=== PATIENT | male | born 1995 | race Caucasian/White ===

== ENCOUNTER 2019-04-05 15:07 | Inpatient (IN) | payer OTHER ==
[2019-04-05 17:06] VITALS: BMI 20.5
--- NOTE | 2019-04-05 19:27 | HP ---
CIWA Score Nausea/Vomitin-Mild Nausea/No Vomiting Muscle Tremors: 2 Anxiety: 1-Mildly Anxious Agitation: 1-Slight > Activity Paroxysmal Sweats: 1-Minimal Palms Moist Orientation: 0-Oriented Tacttile Disturbances: 0-None Auditory Disturbances: 0-None Visual Disturbances: 0-None Headache: 0-None Present CIWA-Ar Total Score: 6 - Admission Criteria OASAS Guidelines: Admission for Medically Managed Detox: Requires at least one of the followin. CIWA greater than 12 2. Seizures within the past 24 hours 3. Delirium tremens within the past 24 hours 4. Hallucinations within the past 24 hours 5. Acute intervention needed for co occurring medical disorder 6. Acute intervention needed for co occurring psychiatric disorder 7. Severe withdrawal that cannot be handled at a lower level of care (continued vomiting, continued diarrhea, abnormal vital signs) requiring intravenous medication and/or fluids 8. Admission ROS [facility] - [facility] Chief Complaint: here for xanax withdrawal, on MAT methadone Allergies/Adverse Reactions: Allergies Allergy/AdvReac Type Severity Reaction Status Date / Time No Known Allergies Allergy Verified 04/05/19 16:58 History of Present Illness: 24 yo with no medical problems, in [facility] in the [place], dosed 120mg today. Mother . Says he can't go back to his apartment, order of protection by roommate. 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 Pt states he got librium 50mg a day to detox and felt this is better for him than valium. Valium makes him "feel funny" xanax- 8-10mg/day, h/o seizures. Says he started heroin- 2bags/day on MAT methadone 120mg- going up on dose cocaine- occ MJ: occ DUR- no recent controlled substances - Ebola screening Have you traveled outside of the country in the last 21 days: No Have you had contact with anyone from an Ebola affected area: No - Review of Systems Constitutional: No Symptoms Reported EENT: reports: No Symptoms Reported Respiratory: reports: No Symptoms reported Cardiac: reports: No Symptoms Reported GI: reports: No Symptoms Reported : reports: No Symptoms Reported, Testicular Swelling Integumentary: reports: No Symptoms Reported Neuro: reports: No Symptoms reported Endocrine: reports: No Symptoms Reported Hematology: reports: No Symptoms Reported Psychiatric: reports: No Sypmtoms Reported Other Systems: Reviewed and Negative Patient History - Patient Medical History Hx Human Immunodeficiency Virus (HIV): No Hx Hepatitis C: No - Patient Surgical History Past Surgical History: Yes Other Surgical History: tonsillectomy - PPD History Previous Implant?: Yes Documented Results: Negative w/o proof - Smoking Cessation Smoking history: Current every day smoker Have you smoked in the past 12 months: Yes Aproximately how many cigarettes per day: 5 Hx Chewing Tobacco Use: No Initiated information on smoking cessation: Yes 'Breaking Loose' booklet given: 04/05/19 - Substance & Tx. History Hx Alcohol Use: No Hx Substance Use: No Substance Use Type: Cocaine, Heroin, Marijuana, Opiates, Prescribed Hx Substance Use Treatment: Yes - Substances abused Alprazolam (Xanax) Substance route: Oral Frequency: Daily Amount used: 10 mg Age of first use: 12 Date of last use: 04/04/19 Heroin Substance route: Injection Frequency: Daily Amount used: 4 to 5 bags Age of first use: 19 Date of last use: 04/04/19 Cocaine Substance route: Injection Frequency: 1-2 times per week Family Disease History - Family Disease History Family Disease History: Other: Mother ( of natural causes) Admission Physical Exam BHS - Vital Signs Vital Signs: Vital Signs - 24 hr 04/05/19 16:59 Temperature 97.2 F L Pulse Rate 61 Respiratory 16 Rate Blood Pressure 104/61 - Physical General Appearance: Yes: Within Normal Limits, Anxious HEENTM: Yes: Within Normal Limits, EOMI Respiratory: Yes: Within Normal Limits, Chest Non-Tender, Lungs Clear Neck: Yes: Within Normal Limits Cardiology: Yes: Within Normal Limits, Regular Rhythm Abdominal: Yes: Within Normal Limits, Normal Bowel Sounds, Non Tender Genitourinary: Yes: Within Normal Limits Back: Yes: Within Normal Limits Musculoskeletal: Yes: Within Normal Limits Extremities: Yes: Within Normal Limits Neurological: Yes: Within Normal Limits, 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 NML intact Integumentary: Yes: Within Normal Limits, Track Pierre, Other (tatoos and scar on face) Lymphatic: Yes: Within Normal Limits - Diagnostic (1) Moderate benzodiazepine use disorder Current Visit: Yes Status: Acute (2) Opioid dependence on agonist therapy Current Visit: Yes Status: Acute (3) Cocaine use disorder Current Visit: Yes Status: Acute (4) Tobacco abuse disorder Current Visit: Yes Status: Acute Breathalyzer - Breathalyzer Breathalyzer: 0 Urine Drug Screen - Test Device Lot number: [id number] Expiration date: 12/28/20 - Control Is test valid?: Yes - Results Drug screen NEGATIVE: No Urine drug screen results: THC-Marijuana, RHEA-Cocaine, FEN-Fentanyl, MOP-Opiates , MTD-Methadone, BZO-Benzodiazepines Inpatient Rehab Admission - Rehab Decision to Admit Inpatient rehab admission?: No
[2019-04-05] MEDS ORDERED: MAGNESIUM HYDROX 2400MG/30ML ORAL SUSPENSION 30 ML CUP PO PRN (19:37)
[2019-04-05] MEDS ORDERED: hydrOXYzine HCL 25 MG TABLET (FP) PO PRN ×2 (19:37→19:47)
[2019-04-05] MEDS ORDERED: ACETAMINOPHEN 325 MG TABLET (FP) PO PRN ×2 (19:37)
[2019-04-05] MEDS ORDERED: NICOTINE POLACRILEX 2 MG GUM BUC PRN (19:37)
[2019-04-05] MEDS ORDERED: MAG HYDROX/AL HYDROX/SIMETH 30 ML UNIT-DOSE CUP PO PRN (19:37)
[2019-04-05] MEDS ORDERED: BISMUTH SUBSALICYLATE 524 MG/30 ML UD PO PRN (19:37)
[2019-04-05] MEDS ORDERED: METHOCARBAMOL 500 MG TABLET PO PRN (19:37)
[2019-04-05] MEDS ORDERED: MENTHOL/PHENOL 1 EACH UD MM PRN (19:37)
[2019-04-05] MEDS ORDERED: MAGNESIUM CITRATE 300 ML BOTTLE PO PRN (19:37)
[2019-04-05] MEDS ORDERED: IBUPROFEN 400 MG TABLET (FP) PO PRN ×2 (19:37→19:48)
[2019-04-05] MEDS ORDERED: chlordiazePOXIDE HCL 25 MG CAPSULE PO PRN (19:42)
[2019-04-05] MEDS ORDERED: chlordiazePOXIDE HCL 25 MG CAPSULE PO ONE (19:42)
[2019-04-05] MEDS: THIAMINE HCL 100 MG TABLET (FP) PO SCH (22:34)
[2019-04-05] MEDS: chlordiazePOXIDE HCL 25 MG CAPSULE PO SCH (22:34)
[2019-04-05] MEDS: MELATONIN 5 MG TABLETS PO PRN (22:36)
[2019-04-06] MEDS: chlordiazePOXIDE HCL 25 MG CAPSULE PO SCH ×4 (05:22→23:12)
[2019-04-06] MEDS: PRENATAL VITAMINS W/ FOLIC ACID TABLET (FP) PO SCH (10:34)
[2019-04-06] MEDS: METHADONE HCL 40 MG DISPERSABLE TABLET PO SCH (10:34)
[2019-04-06 11:20] LABS: BILIRUBIN,TOTAL 0.3 mg/dL (0.2-1); BLOOD UREA NITROGEN 9.4 mg/dL (7-18); CALCIUM 8.4 mg/dL (8.5-10.1); CREATININE 0.8 mg/dL (0.55-1.3); POTASSIUM 4.2 mmol/L (3.5-5.1); TOT PROT 5.8 g/dl (6.4-8.2)
[2019-04-06 11:42] LABS: HEMATOCRIT 37.7 % (35.4-49); HEMOGLOBIN 12.4 GM/dL (11.7-16.9); MCH 30.3 pg (25.7-33.7); MCHC 32.9 g/dl (32.0-35.9); MEAN CELL VOLUME 92.1 fl (80-96); PLATELET COUNT 268 K/MM3 (134-434); RDW 13.6 % (11.9-15.9); WHITE BLOOD COUNT 5.1 K/mm3 (4.0-10.0)
--- NOTE | 2019-04-06 16:47 | PN ---
S CIWA - CIWA Score Nausea/Vomitin Muscle Tremors: 3 Anxiety: 3 Agitation: 1-Slight > Activity Paroxysmal Sweats: No Perspiration Orientation: 0-Oriented Tacttile Disturbances: 0-None Auditory Disturbances: 0-None Visual Disturbances: 0-None Headache: 2-Mild CIWA-Ar Total Score: 11 S Progress Note (SOAP) Subjective: Anxious, Sweating, Tremors, Nausea. Objective: PATIENT A & O X 3. IN NO ACUTE DISTRESS. 04/06/19 16:46 Vital Signs Temperature 98.1 F 04/06/19 13:38 Pulse Rate 76 04/06/19 13:38 Respiratory Rate 18 04/06/19 13:38 Blood Pressure 103/64 04/06/19 13:38 O2 Sat by Pulse Oximetry (%) Laboratory Tests 04/06/19 04/06/19 04/06/19 07:00 07:00 07:00 WBC 5.1 RBC 4.10 Hgb 12.4 Hct 37.7 MCV 92.1 MCH 30.3 MCHC 32.9 RDW 13.6 Plt Count 268 MPV 8.0 Sodium 142 Potassium 4.2 Chloride 108 H Carbon Dioxide 28 Anion Gap 6 L BUN 9.4 Creatinine 0.8 Est GFR (CKD-EPI)AfAm 142.89 Est GFR (CKD-EPI)NonAf 123.29 Random Glucose 85 Calcium 8.4 L Total Bilirubin 0.3 AST 15 ALT 18 Alkaline Phosphatase 57 Total Protein 5.8 L Albumin 3.0 L RPR Titer Nonreactive LABS NOTED. RESULTS OF DETOX ADMISSION QFT /TB TEST PENDING. 04/06/19 16:46 Assessment: 04/06/19 16:47 WITHDRAWAL SYMPTOMS. Plan: CONTINUE DETOX.
[2019-04-06] MEDS: THIAMINE HCL 100 MG TABLET (FP) PO SCH (23:12)
[2019-04-06] MEDS: MELATONIN 5 MG TABLETS PO PRN (23:12)
[2019-04-07] MEDS: METHADONE HCL 40 MG DISPERSABLE TABLET PO SCH (05:28)
[2019-04-07] MEDS: chlordiazePOXIDE HCL 25 MG CAPSULE PO SCH ×4 (05:28→22:39)
[2019-04-07] MEDS: PRENATAL VITAMINS W/ FOLIC ACID TABLET (FP) PO SCH (10:34)
--- NOTE | 2019-04-07 16:05 | PN ---
S CIWA - CIWA Score Nausea/Vomitin-No Nausea/No Vomiting Muscle Tremors: None Anxiety: 2 Agitation: 0-Normal Activity Paroxysmal Sweats: 3 Orientation: 0-Oriented Tacttile Disturbances: 1-Very Mild Itch/Numbness Auditory Disturbances: 0-None Visual Disturbances: 3-Moderate Sensitivity Headache: 0-None Present CIWA-Ar Total Score: 9 S Progress Note (SOAP) Subjective: Body Aches, Fatigue, Sweating. Objective: PATIENT A & O X 3, OBSERVED AMBULATING ON UNIT UNASSISTED. IN NO ACUTE DISTRESS. 04/07/19 16:03 Vital Signs Temperature 97.2 F L 04/07/19 13:31 Pulse Rate 67 04/07/19 13:31 Respiratory Rate 18 04/07/19 13:31 Blood Pressure 119/59 L 04/07/19 13:31 O2 Sat by Pulse Oximetry (%) Laboratory Tests 04/06/19 04/06/19 04/06/19 07:00 07:00 07:00 WBC 5.1 RBC 4.10 Hgb 12.4 Hct 37.7 MCV 92.1 MCH 30.3 MCHC 32.9 RDW 13.6 Plt Count 268 MPV 8.0 Sodium 142 Potassium 4.2 Chloride 108 H Carbon Dioxide 28 Anion Gap 6 L BUN 9.4 Creatinine 0.8 Est GFR (CKD-EPI)AfAm 142.89 Est GFR (CKD-EPI)NonAf 123.29 Random Glucose 85 Calcium 8.4 L Total Bilirubin 0.3 AST 15 ALT 18 Alkaline Phosphatase 57 Total Protein 5.8 L Albumin 3.0 L RPR Titer Nonreactive LABS NOTED. RESULTS OF DETOX ADMISSION QFT /TB TEST PENDING. 04/07/19 16:04 Assessment: 04/07/19 16:04 WITHDRAWAL SYMPTOMS. Plan: CONTINUE DETOX.
[2019-04-07] MEDS: MELATONIN 5 MG TABLETS PO PRN (22:39)
[2019-04-07] MEDS: THIAMINE HCL 100 MG TABLET (FP) PO SCH (22:39)
[2019-04-08] MEDS ORDERED: chlordiazePOXIDE HCL 10 MG CAPSULE PO PRN
[2019-04-08] MEDS: chlordiazePOXIDE HCL 10 MG CAPSULE PO SCH ×4 (06:30→22:48)
[2019-04-08] MEDS: METHADONE HCL 40 MG DISPERSABLE TABLET PO SCH (08:00)
--- NOTE | 2019-04-08 09:41 | PN ---
S CIWA - CIWA Score Nausea/Vomitin-No Nausea/No Vomiting Muscle Tremors: 1-None Visible, but [place] Anxiety: 3 Agitation: 2 Paroxysmal Sweats: No Perspiration Orientation: 0-Oriented Tacttile Disturbances: 0-None Auditory Disturbances: 0-None Visual Disturbances: 0-None Headache: 2-Mild CIWA-Ar Total Score: 8 S Progress Note (SOAP) Subjective: Patient is day 3 of detox protocol and still very anxious and having headaches. Objective: 04/08/19 09:40 Vitals: BP:121/56 P:58/min R:18/min T:97.9F Laboratory 04/06/19 04/06/19 04/06/19 07:00 07:00 07:00 WBC 5.1 K/mm3 K/mm3 (4.0-10.0) RBC 4.10 M/mm3 M/mm3 (4.00-5.60) Hgb 12.4 GM/dL GM/dL (11.7-16.9) Hct 37.7 % % (35.4-49) MCV 92.1 fl fl (80-96) MCH 30.3 pg pg (25.7-33.7) MCHC 32.9 g/dl g/dl (32.0-35.9) RDW 13.6 % % (11.9-15.9) Plt Count 268 K/MM3 K/MM3 (134-434) MPV 8.0 fl fl (7.5-11.1) Sodium 142 mmol/L mmol/L (136-145) Potassium 4.2 mmol/L mmol/L (3.5-5.1) Chloride 108 mmol/L H mmol/L (98-107) Carbon Dioxide 28 mmol/L mmol/L (21-32) Anion Gap 6 MMOL/L L MMOL/L (8-16) BUN 9.4 mg/dL mg/dL (7-18) Creatinine 0.8 mg/dL mg/dL (0.55-1.3) Est GFR (CKD-EPI)AfAm 142.89 Est GFR (CKD-EPI)NonAf 123.29 Random Glucose 85 mg/dL mg/dL (74-106) Calcium 8.4 mg/dL L mg/dL (8.5-10.1) Total Bilirubin 0.3 mg/dL mg/dL (0.2-1) AST 15 U/L U/L (15-37) ALT 18 U/L U/L (13-61) Alkaline Phosphatase 57 U/L U/L (45-117) Total Protein 5.8 g/dl L g/dl (6.4-8.2) Albumin 3.0 g/dl L g/dl (3.4-5.0) RPR Titer Nonreactive (NONREACTIVE) 04/08/19 09:41 Assessment: 04/08/19 09:41 1. Dehydration with elevated BUN low Cr. and hypocalcemia and Hyperchloremia 2. Anxiety disproportionate to withdrawals 3. Hypoproteinemia and Hypoalbuminemia Plan: 1. Dehydration: Elevated BUN indicates dehydration. Encourage more PO Fluids. Low Cr more of a reflection of poor nutrition and low body mass Add Ensure to diet to supplement protein intake 2. Anxiety: Will call for Psych consult for this patient. 3. Hypoalbuminemia and Hypoproteinemia Increase intake, add ensure, encourage food intake. Dr. Eid
[2019-04-08] MEDS: PRENATAL VITAMINS W/ FOLIC ACID TABLET (FP) PO SCH (10:24)
[2019-04-08] MEDS: MELATONIN 5 MG TABLETS PO PRN (22:48)
[2019-04-08] MEDS: THIAMINE HCL 100 MG TABLET (FP) PO SCH (22:48)
[2019-04-08] MEDS: cloNIDine HCL 0.1 MG TABLET PO PRN (22:54)
[2019-04-09] MEDS: METHADONE HCL 40 MG DISPERSABLE TABLET PO SCH (06:56)
[2019-04-09] MEDS: chlordiazePOXIDE HCL 10 MG CAPSULE PO SCH ×2 (06:56→17:47)
[2019-04-09] MEDS: PRENATAL VITAMINS W/ FOLIC ACID TABLET (FP) PO SCH (10:50)
--- NOTE | 2019-04-09 12:06 | PN ---
S CIWA - CIWA Score Nausea/Vomitin-No Nausea/No Vomiting Muscle Tremors: 3 Anxiety: 1-Mildly Anxious Agitation: 2 Paroxysmal Sweats: 1-Minimal Palms Moist Orientation: 0-Oriented Tacttile Disturbances: 0-None Auditory Disturbances: 0-None Visual Disturbances: 0-None Headache: 0-None Present CIWA-Ar Total Score: 7 BHS Progress Note (SOAP) Subjective: sweats anxiety Objective: 04/09/19 12:04 Vital Signs Temperature 98.2 F 04/09/19 09:25 Pulse Rate 64 04/09/19 09:25 Respiratory Rate 17 04/09/19 09:25 Blood Pressure 109/53 L 04/09/19 09:25 O2 Sat by Pulse Oximetry (%) Laboratory Tests 04/06/19 04/06/19 04/06/19 07:00 07:00 07:00 WBC 5.1 RBC 4.10 Hgb 12.4 Hct 37.7 MCV 92.1 MCH 30.3 MCHC 32.9 RDW 13.6 Plt Count 268 MPV 8.0 Sodium 142 Potassium 4.2 Chloride 108 H Carbon Dioxide 28 Anion Gap 6 L BUN 9.4 Creatinine 0.8 Est GFR (CKD-EPI)AfAm 142.89 Est GFR (CKD-EPI)NonAf 123.29 Random Glucose 85 Calcium 8.4 L Total Bilirubin 0.3 AST 15 ALT 18 Alkaline Phosphatase 57 Total Protein 5.8 L Albumin 3.0 L RPR Titer Nonreactive TB (QFT) Incubation TB Test (QFT) Nil TB Test (QFT) Mitogen TB Test (QFT) Antigen TB Test (QFT) TB Positive Criteria 04/06/19 07:00 WBC RBC Hgb Hct MCV MCH MCHC RDW Plt Count MPV Sodium Potassium Chloride Carbon Dioxide Anion Gap BUN Creatinine Est GFR (CKD-EPI)AfAm Est GFR (CKD-EPI)NonAf Random Glucose Calcium Total Bilirubin AST ALT Alkaline Phosphatase Total Protein Albumin RPR Titer TB (QFT) Incubation TB Test (QFT) Nil 0.03 TB Test (QFT) Mitogen >10.00 TB Test (QFT) Antigen 0.04 TB Test (QFT) Negative TB Positive Criteria labs noted aaox3 ambulating no acute distress Assessment: 04/09/19 12:05 withdrawal sx Plan: continue detox increase fluids d/c in am
[2019-04-09] MEDS: THIAMINE HCL 100 MG TABLET (FP) PO SCH (23:27)
[2019-04-09] MEDS: MELATONIN 5 MG TABLETS PO PRN (23:27)
[2019-04-09] MEDS: cloNIDine HCL 0.1 MG TABLET PO PRN (23:28)
[2019-04-10] MEDS ORDERED: chlordiazePOXIDE HCL 10 MG CAPSULE PO ONE (05:00)
[2019-04-10] MEDS: METHADONE HCL 40 MG DISPERSABLE TABLET PO SCH (05:46)
[2019-04-10 06:41] VITALS: BP 102/52; PULSE 59; TEMP 96.8
--- NOTE | 2019-04-10 14:13 | DS ---
[facility] Detox Discharge Summary Admission Date: 04/05/19 Discharge Date: 04/10/19 - History Present History: Sedative Dependence, MMTP Additional Comments: Pt completed detox successfully and discharged safely. Instructed to follow up with PCP within 1-2 weeks post discharge. Pertinent Past History: Opioid dependence on agonist (MMTP) Sedative dependence Cocaine use disorder Cannabis use disorder Nicotine dependence - Physical Exam Results Vital Signs: Vital Signs Temperature 96.8 F L 04/10/19 06:00 Pulse Rate 59 L 04/10/19 06:00 Respiratory Rate 16 04/10/19 06:00 Blood Pressure 102/52 L 04/10/19 06:00 O2 Sat by Pulse Oximetry (%) Pertinent Admission Physical Exam Findings: Withdrawal sxs Laboratory Tests 04/06/19 04/06/19 04/06/19 07:00 07:00 07:00 WBC 5.1 RBC 4.10 Hgb 12.4 Hct 37.7 MCV 92.1 MCH 30.3 MCHC 32.9 RDW 13.6 Plt Count 268 MPV 8.0 Sodium 142 Potassium 4.2 Chloride 108 H Carbon Dioxide 28 Anion Gap 6 L BUN 9.4 Creatinine 0.8 Est GFR (CKD-EPI)AfAm 142.89 Est GFR (CKD-EPI)NonAf 123.29 Random Glucose 85 Calcium 8.4 L Total Bilirubin 0.3 AST 15 ALT 18 Alkaline Phosphatase 57 Total Protein 5.8 L Albumin 3.0 L RPR Titer Nonreactive TB (QFT) Incubation TB Test (QFT) Nil TB Test (QFT) Mitogen TB Test (QFT) Antigen TB Test (QFT) TB Positive Criteria 04/06/19 07:00 WBC RBC Hgb Hct MCV MCH MCHC RDW Plt Count MPV Sodium Potassium Chloride Carbon Dioxide Anion Gap BUN Creatinine Est GFR (CKD-EPI)AfAm Est GFR (CKD-EPI)NonAf Random Glucose Calcium Total Bilirubin AST ALT Alkaline Phosphatase Total Protein Albumin RPR Titer TB (QFT) Incubation TB Test (QFT) Nil 0.03 TB Test (QFT) Mitogen >10.00 TB Test (QFT) Antigen 0.04 TB Test (QFT) Negative TB Positive Criteria Labs reviewed - Treatment Hospital Course: Detox Protocol Followed, Detoxed Safely, Responded well, Discharged Condition Good - Medication Discharge Medications: Ambulatory Orders NK [No Known Home Medication] 04/05/19 - Diagnosis (1) Cannabis use disorder, mild, abuse Status: Chronic (2) Nicotine dependence Status: Chronic (3) Cocaine use disorder Status: Chronic (4) Moderate benzodiazepine use disorder Status: Acute (5) Opioid dependence on agonist therapy Status: Chronic - AMA Did Patient Leave Against Medical Advice: No (Follow up with your PCP within 1- 2 weeks post discharge)
== END 2019-04-10 09:45 | disposition home or self-care (01) | DRG 773 ==
LOC: YASAS 15:07 → Y6N 20:30
PROVIDERS: ADMIT Surgery; ATTEND Surgery
PROC: HZ2ZZZZ Detoxification Services for Substance Abuse Treatment (ICD-10-PCS; principal; 2019-04-05)
DX: F11.23 Opioid dependence with withdrawal (principal); F13.230 Sedative, hypnotic or anxiolytic dependence with withdrawal, uncomplicated; F14.10 Cocaine abuse, uncomplicated; F12.10 Cannabis abuse, uncomplicated; F17.210 Nicotine dependence, cigarettes, uncomplicated; F41.9 Anxiety disorder, unspecified; E86.0 Dehydration; R79.89 Other specified abnormal findings of blood chemistry; E83.51 Hypocalcemia; E87.8 Other disorders of electrolyte and fluid balance, not elsewhere classified; E88.09 Other disorders of plasma-protein metabolism, not elsewhere classified; R77.0 Abnormality of albumin
CPT/HCPCS: 36415; 80053; 85027; 86480; 86593; J0735

== ENCOUNTER 2019-04-13 10:53 | Inpatient (IN) | payer OTHER ==
[2019-04-13 11:36] VITALS: BMI 21.5
--- NOTE | 2019-04-13 12:53 | HP ---
CIWA Score Nausea/Vomitin-Mild Nausea/No Vomiting Muscle Tremors: None Anxiety: 2 Agitation: 2 Paroxysmal Sweats: 2 Orientation: 0-Oriented Tacttile Disturbances: 0-None Auditory Disturbances: 0-None Visual Disturbances: 0-None Headache: 3-Moderate CIWA-Ar Total Score: 10 - Admission Criteria OASAS Guidelines: Admission for Medically Managed Detox: Requires at least one of the followin. CIWA greater than 12 2. Seizures within the past 24 hours 3. Delirium tremens within the past 24 hours 4. Hallucinations within the past 24 hours 5. Acute intervention needed for co occurring medical disorder 6. Acute intervention needed for co occurring psychiatric disorder 7. Severe withdrawal that cannot be handled at a lower level of care (continued vomiting, continued diarrhea, abnormal vital signs) requiring intravenous medication and/or fluids 8. Admission ROS [facility] Chief Complaint: benzo detox Allergies/Adverse Reactions: Allergies Allergy/AdvReac Type Severity Reaction Status Date / Time fish derived AdvReac Severe Difficulty Verified 04/13/19 11:21 Breathing History of Present Illness: Patient is a 24 yo M with no known PMhx presenting for Benzo detox and rehab. Patient says he takes 3-4 sticks a day of xanax. Patient has been taking xanax consistently for a couple of months. He buys the xanax on the streets. Last use yesterday morning. Patient is on 140mg on Methadone. [facility]es [facility]. Started methadone program 2-3 years ago for Heroin Use. Last heroin use april 04. Patient injects cocaine, heroine usually in his arms. Currently lives in a senior care. No hx of seizures. He has blacked out in the past. Was here for detox on 04/05-04/10. Exam Limitations: No Limitations - Ebola screening Have you traveled outside of the country in the last 21 days: No Have you had contact with anyone from an Ebola affected area: No Do you have a fever: No - Review of Systems Constitutional: Chills (sometimes), Loss of Appetite EENT: reports: Blurred Vision Respiratory: reports: Shortness of Breath Cardiac: denies: Chest Pain, Edema Patient History - Patient Medical History Hx Asthma: No Hx Chronic Obstructive Pulmonary Disease (COPD): No Hx Cardiac Disorders: No Hx Hypertension: No Hx Seizures: No Hx Diabetes: No Hx Gastrointestinal Disorders: No Hx Genitourinary Disorders: No Hx Sexually Transmitted Disorders: No Hx Renal Disease (ESRD): No Hx Human Immunodeficiency Virus (HIV): No Hx Hepatitis C: No Hx Depression: No Hx Suicide Attempt: No Hx Schizophrenia: No - Patient Surgical History Past Surgical History: Yes Hx Neurologic Surgery: No Hx Cataract Extraction: No Hx Cardiac Surgery: No Hx Lung Surgery: No Hx Breast Surgery: No Hx Breast Biopsy: No Hx Abdominal Surgery: No Hx Appendectomy: No Hx Cholecystectomy: No Hx Genitourinary Surgery: No Hx Section: No Hx Orthopedic Surgery: No Other Surgical History: tonsillectomy Anesthesia Reaction: No - Smoking Cessation Smoking history: Current every day smoker Have you smoked in the past 12 months: Yes Aproximately how many cigarettes per day: 5 Hx Chewing Tobacco Use: No - Substances abused Alprazolam (Xanax) Substance route: Oral Frequency: Daily Amount used: 4 mg Age of first use: 16 Date of last use: 04/12/19 Heroin Substance route: Injection Frequency: Daily Amount used: 4 to 5 bags Age of first use: 19 Date of last use: 04/04/19 Cocaine Substance route: Injection Frequency: 3-6 times per week Amount used: 2 $20 bags Age of first use: 16 Date of last use: 04/11/19 Family Disease History - Family Disease History Family Disease History: Other: Mother ( of natural causes) Admission Physical Exam BHS - Vital Signs Vital Signs: Vital Signs - 24 hr 04/13/19 04/13/19 11:15 12:08 Temperature 98.4 F 98.4 F Pulse Rate 81 81 Respiratory 18 18 Rate Blood Pressure 103/58 L 103/58 L - Physical General Appearance: Yes: No Apparent Distress HEENTM: Yes: Within Normal Limits Respiratory: Yes: Lungs Clear, No Respiratory Distress, No Accessory Muscle Use Neck: Yes: Supple Abdominal: Yes: Normal Bowel Sounds, Non Tender, Soft Integumentary: Yes: Track Pierre, Other (scratches on his LE) Breathalyzer - Breathalyzer Breathalyzer: 0 Urine Drug Screen - Test Device Lot number: [id number] Expiration date: 12/28/20 - Control Is test valid?: Yes - Results Drug screen NEGATIVE: No Urine drug screen results: THC-Marijuana, RHEA-Cocaine, MOP-Opiates, MTD- Methadone, BZO-Benzodiazepines
--- NOTE | 2019-04-13 13:30 | HP ---
Screened but not Admitted - Documentation of Visit Screened but not Admitted: Yes Left Prior to Completion of Assessment: No Insurance Authorization Denied: No Patient Does Not Meet Criteria for Admission: Yes Level of Care Recommended at this Time: Out Patient Care/Followup Alternative Treatment/Jail Info Provided: No Additional Information/Explanation: Patient had just completed detox one week ago and was referred out back to another program due to negative urine tox for alcohol and opiates and he was mandated by court to come to detox but he does not qualify for detox. Marcelo was also o.
--- NOTE | 2019-04-13 13:34 | HP ---
CIWA Score Nausea/Vomitin-Mild Nausea/No Vomiting Muscle Tremors: None Anxiety: 1-Mildly Anxious Agitation: 1-Slight > Activity Paroxysmal Sweats: 1-Minimal Palms Moist Orientation: 0-Oriented Tacttile Disturbances: 0-None Auditory Disturbances: 0-None Visual Disturbances: 0-None Headache: 3-Moderate CIWA-Ar Total Score: 7 - Admission Criteria OASAS Guidelines: Admission for Medically Managed Detox: Requires at least one of the followin. CIWA greater than 12 2. Seizures within the past 24 hours 3. Delirium tremens within the past 24 hours 4. Hallucinations within the past 24 hours 5. Acute intervention needed for co occurring medical disorder 6. Acute intervention needed for co occurring psychiatric disorder 7. Severe withdrawal that cannot be handled at a lower level of care (continued vomiting, continued diarrhea, abnormal vital signs) requiring intravenous medication and/or fluids 8. Admission ROS [facility] Chief Complaint: Benzo rehab Allergies/Adverse Reactions: Allergies Allergy/AdvReac Type Severity Reaction Status Date / Time fish derived AdvReac Severe Difficulty Verified 04/13/19 11:21 Breathing History of Present Illness: Patient is a 24 yo M with no known PMHx except for alcohol use disorder, cocaine and heroine abuse, coming in today for benzo rehab. He says he has been using 3-5 sticks of xanax a day for a couple of months. Last use of Xanax this morning. He has been using drugs for years. He admits to IV drug use. He says he is on a Methadone program at [facility] now for 2-3 years. He last used Heroin 04/04. He currently lives in a nursing home. He denies hx of seizures. He does black out at times. He was recently here for detox on 04/05-04/10 Exam Limitations: No Limitations - Ebola screening Have you traveled outside of the country in the last 21 days: No Have you had contact with anyone from an Ebola affected area: No Do you have a fever: No - Review of Systems Constitutional: Loss of Appetite, Night Sweats EENT: reports: No Symptoms Reported Respiratory: reports: Shortness of Breath. denies: Cough, Hemoptysis Cardiac: denies: Chest Pain, Edema, Palpitations GI: reports: No Symptoms Reported Patient History - Patient Medical History Hx Asthma: No Hx Chronic Obstructive Pulmonary Disease (COPD): No Hx Cardiac Disorders: No Hx Hypertension: No Hx Seizures: No Hx Diabetes: No Hx Gastrointestinal Disorders: No Hx Genitourinary Disorders: No Hx Sexually Transmitted Disorders: No Hx Renal Disease (ESRD): No Hx Human Immunodeficiency Virus (HIV): No Hx Hepatitis C: No Hx Depression: No Hx Suicide Attempt: No Hx Schizophrenia: No - Patient Surgical History Past Surgical History: Yes Hx Neurologic Surgery: No Hx Cataract Extraction: No Hx Cardiac Surgery: No Hx Lung Surgery: No Hx Breast Surgery: No Hx Breast Biopsy: No Hx Abdominal Surgery: No Hx Appendectomy: No Hx Cholecystectomy: No Hx Genitourinary Surgery: No Hx Section: No Hx Orthopedic Surgery: No Other Surgical History: tonsillectomy Anesthesia Reaction: No - Smoking Cessation Smoking history: Current every day smoker Have you smoked in the past 12 months: Yes Aproximately how many cigarettes per day: 5 Hx Chewing Tobacco Use: No Initiated information on smoking cessation: Yes 'Breaking Loose' booklet given: 04/13/19 - Substances abused Alprazolam (Xanax) Substance route: Oral Frequency: Daily Amount used: 4 mg Age of first use: 16 Date of last use: 04/12/19 Heroin Substance route: Injection Frequency: Daily Amount used: 4 to 5 bags Age of first use: 19 Date of last use: 04/04/19 Cocaine Substance route: Injection Frequency: 3-6 times per week Amount used: 2 $20 bags Age of first use: 16 Date of last use: 04/11/19 Family Disease History - Family Disease History Family Disease History: Other: Mother ( of natural causes) Admission Physical Exam [facility] - Vital Signs Vital Signs: Vital Signs - 24 hr 04/13/19 04/13/19 11:15 12:08 Temperature 98.4 F 98.4 F Pulse Rate 81 81 Respiratory 18 18 Rate Blood Pressure 103/58 L 103/58 L - Physical General Appearance: Yes: No Apparent Distress HEENTM: Yes: EOMI, Normal Voice Respiratory: Yes: Normal Breath Sounds, No Respiratory Distress, No Accessory Muscle Use Neck: Yes: Supple Cardiology: Yes: Regular Rate, S1, S2 Abdominal: Yes: Within Normal Limits, Non Tender, Soft Extremities: No: Pedal Edema Integumentary: Yes: Track Pierre, Other (scratches on b/l LE) - Diagnostic (1) Moderate benzodiazepine use disorder Current Visit: No Status: Acute (2) Tobacco abuse disorder Current Visit: No Status: Acute (3) Cannabis use disorder, mild, abuse Current Visit: No Status: Chronic (4) Cocaine use disorder Current Visit: No Status: Chronic (5) Nicotine dependence Current Visit: No Status: Chronic (6) Opioid dependence Current Visit: Yes Status: Acute Cleared for Admission S - Detox or Rehab [facility] Level of Care: Medically Managed Breathalyzer - Breathalyzer Breathalyzer: 0 Urine Drug Screen - Test Device Lot number: [id number] Expiration date: 12/28/20 - Control Is test valid?: Yes - Results Drug screen NEGATIVE: No Urine drug screen results: THC-Marijuana, RHEA-Cocaine, MOP-Opiates, MTD- Methadone, BZO-Benzodiazepines Inpatient Rehab Admission - Rehab Decision to Admit Inpatient rehab admission?: Yes - Initial Determination Are CD services needed?: Yes Free of communicable disease: Yes Not in need of hospitalization: Yes - Rehab Admission Criteria Previous failed treatment: Yes Poor recovery environment: Yes Comorbidities: Yes Lacks judgement: No Patient is meeting Inpatient Rehab admission criteria:: Yes
--- NOTE | 2019-04-13 14:27 | PN ---
Teaching Attending Note Name of Resident: Evelyn Phillips ATTENDING PHYSICIAN STATEMENT I saw and evaluated the patient. I reviewed the resident's note and discussed the case with the resident. I agree with the resident's findings and plan as documented. SUBJECTIVE: this 24 years old male with heroin,cocaine and xanax dependence,completed [facility] 04/05/19 to 04/[facility] OBJECTIVE: Vital Signs Temperature 98.4 F 04/13/19 12:08 Pulse Rate 81 04/13/19 12:08 Respiratory Rate 18 04/13/19 12:08 Blood Pressure 103/58 L 04/13/19 12:08 O2 Sat by Pulse Oximetry (%) ASSESSMENT AND PLAN: patient need rehab form heroin,cocaine xanax dependence,need further level of care inpatient rehab
[2019-04-13] MEDS ORDERED: MAGNESIUM CITRATE 300 ML BOTTLE PO PRN (14:30)
[2019-04-13] MEDS ORDERED: MENTHOL/PHENOL 1 EACH UD MM PRN (14:30)
[2019-04-13] MEDS ORDERED: MAG HYDROX/AL HYDROX/SIMETH 30 ML UNIT-DOSE CUP PO PRN (14:30)
[2019-04-13] MEDS ORDERED: LOPERAMIDE HCL 2 MG CAPSULE PO PRN (14:30)
[2019-04-13] MEDS ORDERED: MAGNESIUM HYDROX 2400MG/30ML ORAL SUSPENSION 30 ML CUP PO PRN (14:30)
[2019-04-13] MEDS ORDERED: guaiFENesin 200 MG/10 ML 10 ML UNIT-DOSE CUPS PO PRN (14:30)
[2019-04-13] MEDS: THIAMINE HCL 100 MG TABLET (FP) PO SCH (21:20)
[2019-04-14] MEDS ORDERED: METHADONE HCL 10 MG TABLET PO ONE (09:23)
[2019-04-14] MEDS ORDERED: METHADONE 120 MG, METHADONE 20 MG PO ONE (09:30)
[2019-04-14] MEDS: PRENATAL VITAMINS W/ FOLIC ACID TABLET (FP) PO SCH (09:31)
[2019-04-14] MEDS ORDERED: METHADONE HCL 10 MG TABLET ONE (09:59)
[2019-04-14] MEDS ORDERED: METHADONE HCL 40 MG DISPERSABLE TABLET ONE (09:59)
[2019-04-14] MEDS: MELATONIN 5 MG TABLETS PO PRN (21:35)
[2019-04-14] MEDS: THIAMINE HCL 100 MG TABLET (FP) PO SCH (21:35)
[2019-04-15] MEDS ORDERED: METHADONE HCL 40 MG DISPERSABLE TABLET ONE (04:59)
[2019-04-15] MEDS ORDERED: METHADONE HCL 10 MG TABLET ONE (04:59)
[2019-04-15] MEDS ORDERED: METHADONE HCL 10 MG TABLET PO SCH (06:00)
[2019-04-15] MEDS: METHADONE 120 MG, METHADONE 20 MG PO SCH (06:37)
[2019-04-15] MEDS: PRENATAL VITAMINS W/ FOLIC ACID TABLET (FP) PO SCH (10:08)
[2019-04-15] MEDS: MELATONIN 5 MG TABLETS PO PRN (21:12)
[2019-04-15] MEDS: THIAMINE HCL 100 MG TABLET (FP) PO SCH (21:12)
[2019-04-16] MEDS ORDERED: METHADONE HCL 10 MG TABLET ONE (03:55)
[2019-04-16] MEDS ORDERED: METHADONE HCL 40 MG DISPERSABLE TABLET ONE (03:55)
[2019-04-16] MEDS: METHADONE 120 MG, METHADONE 20 MG PO SCH (05:55)
[2019-04-16] MEDS: PRENATAL VITAMINS W/ FOLIC ACID TABLET (FP) PO SCH (10:42)
[2019-04-16] MEDS: MELATONIN 5 MG TABLETS PO PRN (21:29)
[2019-04-16] MEDS: THIAMINE HCL 100 MG TABLET (FP) PO SCH (21:29)
[2019-04-17] MEDS ORDERED: METHADONE HCL 10 MG TABLET ONE (03:51)
[2019-04-17] MEDS ORDERED: METHADONE HCL 40 MG DISPERSABLE TABLET ONE (03:51)
[2019-04-17] MEDS: METHADONE 120 MG, METHADONE 20 MG PO SCH (06:08)
[2019-04-17] MEDS: PRENATAL VITAMINS W/ FOLIC ACID TABLET (FP) PO SCH (09:31)
[2019-04-17] MEDS: THIAMINE HCL 100 MG TABLET (FP) PO SCH (21:41)
[2019-04-17] MEDS: MELATONIN 5 MG TABLETS PO PRN (21:41)
[2019-04-18] MEDS ORDERED: METHADONE HCL 40 MG DISPERSABLE TABLET ONE (04:01)
[2019-04-18] MEDS ORDERED: METHADONE HCL 10 MG TABLET ONE (04:01)
[2019-04-18] MEDS: METHADONE 120 MG, METHADONE 20 MG PO SCH (06:01)
[2019-04-18] MEDS: PRENATAL VITAMINS W/ FOLIC ACID TABLET (FP) PO SCH (11:00)
[2019-04-18] MEDS: MELATONIN 5 MG TABLETS PO PRN (21:54)
[2019-04-18] MEDS: THIAMINE HCL 100 MG TABLET (FP) PO SCH (21:54)
[2019-04-19] MEDS ORDERED: METHADONE HCL 40 MG DISPERSABLE TABLET ONE (04:03)
[2019-04-19] MEDS ORDERED: METHADONE HCL 10 MG TABLET ONE (04:03)
[2019-04-19] MEDS: METHADONE 120 MG, METHADONE 20 MG PO SCH (06:17)
[2019-04-19] MEDS: PRENATAL VITAMINS W/ FOLIC ACID TABLET (FP) PO SCH (10:46)
[2019-04-19] MEDS: MELATONIN 5 MG TABLETS PO PRN (21:10)
[2019-04-19] MEDS: THIAMINE HCL 100 MG TABLET (FP) PO SCH (21:10)
[2019-04-20] MEDS ORDERED: METHADONE HCL 10 MG TABLET ONE (04:15)
[2019-04-20] MEDS ORDERED: METHADONE HCL 40 MG DISPERSABLE TABLET ONE (04:16)
[2019-04-20] MEDS: METHADONE 120 MG, METHADONE 20 MG PO SCH (06:19)
[2019-04-20] MEDS: PRENATAL VITAMINS W/ FOLIC ACID TABLET (FP) PO SCH (10:23)
[2019-04-20] MEDS: THIAMINE HCL 100 MG TABLET (FP) PO SCH (22:02)
[2019-04-20] MEDS: MELATONIN 5 MG TABLETS PO PRN (22:02)
[2019-04-21] MEDS ORDERED: METHADONE HCL 10 MG TABLET ONE (05:33)
[2019-04-21] MEDS ORDERED: METHADONE HCL 40 MG DISPERSABLE TABLET ONE (05:33)
[2019-04-21] MEDS: METHADONE 120 MG, METHADONE 20 MG PO SCH (06:13)
[2019-04-21] MEDS: PRENATAL VITAMINS W/ FOLIC ACID TABLET (FP) PO SCH (10:14)
[2019-04-21] MEDS: THIAMINE HCL 100 MG TABLET (FP) PO SCH (21:27)
[2019-04-21] MEDS: ACETAMINOPHEN 325 MG TABLET (FP) PO PRN (21:27)
[2019-04-21] MEDS: P-EPHED 60MG/TRIPROLIDI 2.5MG TABLET PO PRN (21:28)
[2019-04-22] MEDS ORDERED: METHADONE HCL 40 MG DISPERSABLE TABLET ONE (05:47)
[2019-04-22] MEDS ORDERED: METHADONE HCL 10 MG TABLET ONE (05:47)
[2019-04-22] MEDS: METHADONE 120 MG, METHADONE 20 MG PO SCH (06:20)
[2019-04-22] MEDS: ACETAMINOPHEN 325 MG TABLET (FP) PO PRN ×2 (10:29→21:34)
[2019-04-22] MEDS: PRENATAL VITAMINS W/ FOLIC ACID TABLET (FP) PO SCH (10:29)
[2019-04-22] MEDS: P-EPHED 60MG/TRIPROLIDI 2.5MG TABLET PO PRN (10:30)
[2019-04-22] MEDS: THIAMINE HCL 100 MG TABLET (FP) PO SCH (21:34)
[2019-04-22] MEDS: MELATONIN 5 MG TABLETS PO PRN (21:35)
[2019-04-23] MEDS: METHADONE 120 MG, METHADONE 20 MG PO SCH (05:54)
[2019-04-23] MEDS ORDERED: METHADONE HCL 40 MG DISPERSABLE TABLET ONE (05:54)
[2019-04-23] MEDS ORDERED: METHADONE HCL 10 MG TABLET ONE (05:54)
[2019-04-23] MEDS: P-EPHED 60MG/TRIPROLIDI 2.5MG TABLET PO PRN ×2 (10:12→21:24)
[2019-04-23] MEDS: ACETAMINOPHEN 325 MG TABLET (FP) PO PRN ×2 (10:12→21:24)
[2019-04-23] MEDS: PRENATAL VITAMINS W/ FOLIC ACID TABLET (FP) PO SCH (10:12)
[2019-04-23] MEDS: THIAMINE HCL 100 MG TABLET (FP) PO SCH (21:24)
[2019-04-23] MEDS: MELATONIN 5 MG TABLETS PO PRN (21:25)
[2019-04-24] MEDS ORDERED: METHADONE HCL 10 MG TABLET ONE (03:43)
[2019-04-24] MEDS ORDERED: METHADONE HCL 40 MG DISPERSABLE TABLET ONE (03:43)
[2019-04-24] MEDS: METHADONE 120 MG, METHADONE 20 MG PO SCH (05:56)
[2019-04-24] MEDS: PRENATAL VITAMINS W/ FOLIC ACID TABLET (FP) PO SCH (10:03)
[2019-04-24] MEDS: THIAMINE HCL 100 MG TABLET (FP) PO SCH (21:18)
[2019-04-24] MEDS: MELATONIN 5 MG TABLETS PO PRN (21:18)
[2019-04-25] MEDS ORDERED: METHADONE HCL 40 MG DISPERSABLE TABLET ONE (05:25)
[2019-04-25] MEDS ORDERED: METHADONE HCL 10 MG TABLET ONE (05:25)
[2019-04-25] MEDS: METHADONE 120 MG, METHADONE 20 MG PO SCH (05:59)
[2019-04-25] MEDS: PRENATAL VITAMINS W/ FOLIC ACID TABLET (FP) PO SCH (10:04)
[2019-04-25] MEDS: MELATONIN 5 MG TABLETS PO PRN (21:24)
[2019-04-25] MEDS: THIAMINE HCL 100 MG TABLET (FP) PO SCH (21:24)
[2019-04-26] MEDS ORDERED: METHADONE HCL 10 MG TABLET ONE (05:33)
[2019-04-26] MEDS ORDERED: METHADONE HCL 40 MG DISPERSABLE TABLET ONE (05:33)
[2019-04-26] MEDS: METHADONE 120 MG, METHADONE 20 MG PO SCH (06:08)
[2019-04-26] MEDS: PRENATAL VITAMINS W/ FOLIC ACID TABLET (FP) PO SCH (10:18)
[2019-04-26] MEDS: MELATONIN 5 MG TABLETS PO PRN (21:32)
[2019-04-26] MEDS: THIAMINE HCL 100 MG TABLET (FP) PO SCH (21:32)
[2019-04-27] MEDS ORDERED: METHADONE HCL 10 MG TABLET ONE (05:32)
[2019-04-27] MEDS ORDERED: METHADONE HCL 40 MG DISPERSABLE TABLET ONE (05:33)
[2019-04-27] MEDS: METHADONE 120 MG, METHADONE 20 MG PO SCH (06:12)
[2019-04-27] MEDS: PRENATAL VITAMINS W/ FOLIC ACID TABLET (FP) PO SCH (10:16)
--- NOTE | 2019-04-27 10:17 | PN ---
[facility] Progress Note (SOAP) Subjective: patient c/o frequent urination and hunger, no increased thirst. Requesting A1c to evaluate for DM. No PMHx of DM or family hx reported. Last FS was 109. Also c/o itchy rash left side of face, PMHx of eczema. Objective: Appearance: no apparent distress Skin: reddened area left lateral forehead area Lungs: clear Heart s1 s2 audible, regular Neuro: no neurological deficits noted, CN 2-12 intact 04/27/19 10:13 04/27/19 10:14 Vital Signs (72 hours) 04/25/19 04/25/19 04/25/19 00:30 03:30 06:53 Temperature 98.2 F Pulse Rate 63 Respiratory 18 18 18 Rate Blood Pressure 112/68 04/26/19 04/26/19 04/26/19 00:30 03:30 06:37 Temperature 98.4 F Pulse Rate 73 Respiratory 18 18 18 Rate Blood Pressure 108/70 04/27/19 04/27/19 04/27/19 00:30 03:30 06:36 Temperature 98.2 F Pulse Rate 63 Respiratory 18 18 18 Rate Blood Pressure 110/64 Assessment: Frequent urination Eczema 04/27/19 10:15 Plan: Frequent urination: ordered U/A and CMP; BGM x 3 days to evaluate for elevated blood glucose. Rash: hydrocortisone ointment.
[2019-04-27 14:30] LABS: PH,URINE 5.5 (5.0-8.0); URINE APPEARANCE CLEAR; URINE BILIRUBIN NEGATIVE (NEGATIVE); URINE COLOR YELLOW; URINE GLUCOSE (UA) NEGATIVE (NEGATIVE); URINE KETONE NEGATIVE (NEGATIVE); URINE LEUK ESTERASE NEGATIVE (NEGATIVE); URINE NITRITE NEGATIVE (NEGATIVE); URINE PROTEIN NEGATIVE (NEGATIVE); URINE UROBILINOGEN 0.2 mg/dL (0.2-1.0)
[2019-04-27] MEDS: HYDROCORTISONE 1% TOPICAL OINT 30 GM TUBE TP PRN (16:47)
[2019-04-27] MEDS: THIAMINE HCL 100 MG TABLET (FP) PO SCH (21:05)
[2019-04-27] MEDS: MELATONIN 5 MG TABLETS PO PRN (21:05)
[2019-04-28] MEDS ORDERED: METHADONE HCL 10 MG TABLET ONE (03:52)
[2019-04-28] MEDS ORDERED: METHADONE HCL 40 MG DISPERSABLE TABLET ONE (03:53)
[2019-04-28] MEDS: METHADONE 120 MG, METHADONE 20 MG PO SCH (06:17)
--- NOTE | 2019-04-28 10:01 | PN ---
[facility] Progress Note Note: c/o of frequent urination Vital Signs Temperature 98 F 04/28/19 06:43 Pulse Rate 62 04/28/19 06:43 Respiratory Rate 18 04/28/19 06:43 Blood Pressure 108/65 04/28/19 06:43 O2 Sat by Pulse Oximetry (%) Laboratory Last Values POC Glucometer 104 UNITS (80-120) 04/28/19 06:43 Urine Color Yellow 04/27/19 12:50 Urine Appearance Clear 04/27/19 12:50 Urine pH 5.5 (5.0-8.0) 04/27/19 12:50 Ur Specific [place] 1.026 (1.010-1.035) 04/27/19 12:50 Urine Protein Negative (NEGATIVE) 04/27/19 12:50 Urine Glucose (UA) Negative (NEGATIVE) 04/27/19 12:50 Urine Ketones Negative (NEGATIVE) 04/27/19 12:50 Urine Blood Negative (NEGATIVE) 04/27/19 12:50 Urine Nitrite Negative (NEGATIVE) 04/27/19 12:50 Urine Bilirubin Negative (NEGATIVE) 04/27/19 12:50 Urine Urobilinogen 0.2 mg/dL (0.2-1.0) 04/27/19 12:50 Ur Leukocyte Esterase Negative (NEGATIVE) 04/27/19 12:50 HIV 1&2 Ag/Ab, 4th Gen Non reactive (Non Reactive) 04/14/19 10:00 HIV 1&2 Antibody Screen Cancelled 04/14/19 08:13 HIV P24 Antigen Cancelled 04/14/19 08:13 Patient stable labs reviewed, u/a and BGM WNL. Patient to follow up with PCP Will continue to monitor
[2019-04-28] MEDS: PRENATAL VITAMINS W/ FOLIC ACID TABLET (FP) PO SCH (10:29)
[2019-04-28] MEDS: P-EPHED 60MG/TRIPROLIDI 2.5MG TABLET PO PRN (10:38)
[2019-04-28] MEDS: THIAMINE HCL 100 MG TABLET (FP) PO SCH (21:47)
[2019-04-28] MEDS: MELATONIN 5 MG TABLETS PO PRN (21:47)
[2019-04-29] MEDS ORDERED: METHADONE HCL 40 MG DISPERSABLE TABLET ONE (05:38)
[2019-04-29] MEDS ORDERED: METHADONE HCL 10 MG TABLET ONE (05:38)
[2019-04-29] MEDS: METHADONE 120 MG, METHADONE 20 MG PO SCH (06:13)
[2019-04-29] MEDS: PRENATAL VITAMINS W/ FOLIC ACID TABLET (FP) PO SCH (09:44)
[2019-04-29] MEDS: MELATONIN 5 MG TABLETS PO PRN (21:00)
[2019-04-29] MEDS: THIAMINE HCL 100 MG TABLET (FP) PO SCH (21:00)
[2019-04-30] MEDS ORDERED: METHADONE HCL 40 MG DISPERSABLE TABLET ONE (05:31)
[2019-04-30] MEDS ORDERED: METHADONE HCL 10 MG TABLET ONE (05:31)
[2019-04-30] MEDS: METHADONE 120 MG, METHADONE 20 MG PO SCH (06:11)
[2019-04-30] MEDS: PRENATAL VITAMINS W/ FOLIC ACID TABLET (FP) PO SCH (09:35)
[2019-04-30] MEDS: THIAMINE HCL 100 MG TABLET (FP) PO SCH (22:01)
[2019-04-30] MEDS: MELATONIN 5 MG TABLETS PO PRN (22:01)
[2019-05-01] MEDS ORDERED: METHADONE HCL 40 MG DISPERSABLE TABLET ONE (05:34)
[2019-05-01] MEDS ORDERED: METHADONE HCL 10 MG TABLET ONE (05:34)
[2019-05-01] MEDS: METHADONE 120 MG, METHADONE 20 MG PO SCH (06:23)
[2019-05-01] MEDS: PRENATAL VITAMINS W/ FOLIC ACID TABLET (FP) PO SCH (09:57)
[2019-05-01] MEDS: THIAMINE HCL 100 MG TABLET (FP) PO SCH (21:12)
[2019-05-01] MEDS: MELATONIN 5 MG TABLETS PO PRN (21:12)
[2019-05-02] MEDS ORDERED: METHADONE HCL 10 MG TABLET ONE (05:58)
[2019-05-02] MEDS ORDERED: METHADONE HCL 40 MG DISPERSABLE TABLET ONE (05:58)
[2019-05-02] MEDS: METHADONE 120 MG, METHADONE 20 MG PO SCH (06:14)
[2019-05-02] MEDS: PRENATAL VITAMINS W/ FOLIC ACID TABLET (FP) PO SCH (09:55)
[2019-05-02] MEDS: MELATONIN 5 MG TABLETS PO PRN (21:06)
[2019-05-02] MEDS: THIAMINE HCL 100 MG TABLET (FP) PO SCH (21:06)
[2019-05-03] MEDS ORDERED: METHADONE HCL 40 MG DISPERSABLE TABLET ONE (06:01)
[2019-05-03] MEDS ORDERED: METHADONE HCL 10 MG TABLET ONE (06:01)
[2019-05-03] MEDS: METHADONE 120 MG, METHADONE 20 MG PO SCH (06:15)
[2019-05-03] MEDS ORDERED: PT OWN MED DRAWER 7, Y5N ONE (09:32)
[2019-05-03] MEDS: PRENATAL VITAMINS W/ FOLIC ACID TABLET (FP) PO SCH (09:36)
[2019-05-03] MEDS: THIAMINE HCL 100 MG TABLET (FP) PO SCH (21:34)
[2019-05-03] MEDS: MELATONIN 5 MG TABLETS PO PRN (21:34)
[2019-05-04] MEDS ORDERED: METHADONE HCL 40 MG DISPERSABLE TABLET ONE (05:32)
[2019-05-04] MEDS ORDERED: METHADONE HCL 10 MG TABLET ONE (05:32)
[2019-05-04] MEDS: METHADONE 120 MG, METHADONE 20 MG PO SCH (06:08)
[2019-05-04] MEDS: PRENATAL VITAMINS W/ FOLIC ACID TABLET (FP) PO SCH (10:10)
[2019-05-04] MEDS: MELATONIN 5 MG TABLETS PO PRN (21:14)
[2019-05-04] MEDS: THIAMINE HCL 100 MG TABLET (FP) PO SCH (21:15)
[2019-05-05] MEDS ORDERED: METHADONE HCL 40 MG DISPERSABLE TABLET ONE (05:26)
[2019-05-05] MEDS ORDERED: METHADONE HCL 10 MG TABLET ONE (05:26)
[2019-05-05] MEDS: METHADONE 120 MG, METHADONE 20 MG PO SCH (06:14)
[2019-05-05] MEDS: PRENATAL VITAMINS W/ FOLIC ACID TABLET (FP) PO SCH (09:54)
[2019-05-05] MEDS: HYDROCORTISONE 1% TOPICAL OINT 30 GM TUBE TP PRN (12:26)
[2019-05-05] MEDS: MELATONIN 5 MG TABLETS PO PRN (21:02)
[2019-05-05] MEDS: THIAMINE HCL 100 MG TABLET (FP) PO SCH (21:02)
[2019-05-05] MEDS ORDERED: PT OWN MED DRAWER 7, Y5N ONE (22:06)
[2019-05-06] MEDS ORDERED: METHADONE HCL 10 MG TABLET ONE (05:36)
[2019-05-06] MEDS ORDERED: METHADONE HCL 40 MG DISPERSABLE TABLET ONE (05:36)
[2019-05-06] MEDS: METHADONE 120 MG, METHADONE 20 MG PO SCH (06:12)
[2019-05-06] MEDS: PRENATAL VITAMINS W/ FOLIC ACID TABLET (FP) PO SCH (09:47)
[2019-05-06] MEDS: THIAMINE HCL 100 MG TABLET (FP) PO SCH (21:01)
[2019-05-06] MEDS: MELATONIN 5 MG TABLETS PO PRN (21:01)
[2019-05-07] MEDS ORDERED: METHADONE HCL 10 MG TABLET ONE (06:00)
[2019-05-07] MEDS ORDERED: METHADONE HCL 40 MG DISPERSABLE TABLET ONE (06:01)
[2019-05-07] MEDS: METHADONE 120 MG, METHADONE 20 MG PO SCH (06:20)
[2019-05-07] MEDS: PRENATAL VITAMINS W/ FOLIC ACID TABLET (FP) PO SCH (10:02)
[2019-05-07] MEDS: MELATONIN 5 MG TABLETS PO PRN (21:34)
[2019-05-07] MEDS: THIAMINE HCL 100 MG TABLET (FP) PO SCH (21:34)
[2019-05-08] MEDS ORDERED: METHADONE HCL 10 MG TABLET ONE (05:52)
[2019-05-08] MEDS ORDERED: METHADONE HCL 40 MG DISPERSABLE TABLET ONE (05:53)
[2019-05-08] MEDS: METHADONE 120 MG, METHADONE 20 MG PO SCH (06:12)
[2019-05-08] MEDS: PRENATAL VITAMINS W/ FOLIC ACID TABLET (FP) PO SCH (09:38)
[2019-05-08] MEDS: IBUPROFEN 400 MG TABLET (FP) PO PRN ×2 (16:24→22:41)
[2019-05-08] MEDS ORDERED: PT OWN MED DRAWER 7, Y5N ONE (18:03)
[2019-05-08] MEDS: MELATONIN 5 MG TABLETS PO PRN (21:03)
[2019-05-08] MEDS: THIAMINE HCL 100 MG TABLET (FP) PO SCH (21:03)
[2019-05-09] MEDS ORDERED: METHADONE HCL 10 MG TABLET ONE (05:28)
[2019-05-09] MEDS ORDERED: METHADONE HCL 40 MG DISPERSABLE TABLET ONE (05:28)
[2019-05-09] MEDS: METHADONE 120 MG, METHADONE 20 MG PO SCH (06:06)
[2019-05-09] MEDS: IBUPROFEN 400 MG TABLET (FP) PO PRN ×2 (06:07→17:46)
[2019-05-09 06:17] VITALS: TEMP 97.4
[2019-05-09] MEDS: PRENATAL VITAMINS W/ FOLIC ACID TABLET (FP) PO SCH (10:14)
[2019-05-09] MEDS: MELATONIN 5 MG TABLETS PO PRN (21:00)
[2019-05-09] MEDS: THIAMINE HCL 100 MG TABLET (FP) PO SCH (21:00)
[2019-05-10] MEDS ORDERED: METHADONE HCL 10 MG TABLET ONE (05:34)
[2019-05-10] MEDS ORDERED: METHADONE HCL 40 MG DISPERSABLE TABLET ONE (05:35)
[2019-05-10] MEDS: METHADONE 120 MG, METHADONE 20 MG PO SCH (06:05)
[2019-05-10] MEDS: PRENATAL VITAMINS W/ FOLIC ACID TABLET (FP) PO SCH (10:25)
--- NOTE | 2019-05-10 14:03 | DS ---
[facility] Rehab Discharge Summary - [facility] Rehab Discharge Summary Admission Date: 04/13/19 Discharge Date: 05/11/19 - History Present History: Cannabis dependence, Cocaine dependence, Opioid dependence, Sedative dependence Pertinent Past History: Patient is a 24 yo M with no known PMHx except for alcohol use disorder, cocaine and heroine abuse He says he has been using 3-5 sticks of xanax a day for a couple of months. He has been using drugs for years. He admits to IV drug use. He says he is on a Methadone program at [facility] now for 2-3 years. He last used Heroin 04/04. [facility]. He denies hx of seizures. He does black out at times. - Discharge Physical Exam Vital Signs: Vital Signs Temperature 97.4 F L 05/10/19 06:36 Pulse Rate 74 05/10/19 06:36 Respiratory Rate 18 05/10/19 06:36 Blood Pressure 111/59 L 05/10/19 06:36 O2 Sat by Pulse Oximetry (%) Pertinent Admission Physical Exam Findings: Physical General Appearance: No Apparent Distress HEENTM: EOMI, PERRLA Respiratory: Clear Neck: Supple Cardiology: S1, S2 Abdominal: +BS, Non Tender, Soft MSK: full weight bearing, full ROM, steady gait Integumentary: Track Pierre,color consistent throughout trunk and extremities Neuro: CN 2-12 intact - Treatment Discharge Condition: Outpatient referral accepted (Patient will return to [facility]MTP at [facility]) Hospital Course: Patient attended groups, had 1:1 meeting with his counselor, was adherent to his treatment plan and medication regimen. He c/o frequent urination during his stay in rehab. BGMs were in the normal range and U/A was negative for infection. Patient was advised to follow up with PCP upon discharge. - Medication Discharge Medications: Ambulatory Orders NK [No Known Home Medication] 04/05/19 - Medication-Assisted Treatment (MAT) Medication-Assisted Treatment (MAT): Yes MAT Follow-up Referral: Pt will return to [facility] for [facility] - Discharge Instructions Diet, activity, other medical instructions: Diet: regular diet as tolerated Activity: as tolerated Other medical instructions: please follow up with aftercare referral to [facility]. Please make appointment with PCP within 2 weeks of discharge.
[2019-05-10] MEDS: THIAMINE HCL 100 MG TABLET (FP) PO SCH (21:05)
[2019-05-10] MEDS: MELATONIN 5 MG TABLETS PO PRN (21:05)
[2019-05-10] MEDS: IBUPROFEN 400 MG TABLET (FP) PO PRN (21:06)
[2019-05-11] MEDS ORDERED: METHADONE HCL 10 MG TABLET ONE (05:34)
[2019-05-11] MEDS ORDERED: METHADONE HCL 40 MG DISPERSABLE TABLET ONE (05:34)
[2019-05-11] MEDS ORDERED: METHADONE 120 MG, METHADONE 20 MG PO SCH (06:00)
[2019-05-11 06:41] VITALS: BP 122/58; PULSE 81
== END 2019-05-11 10:02 | disposition home or self-care (01) | DRG 772 ==
LOC: YASAS 10:53 → Y3W 14:32
PROVIDERS: ADMIT Neuromusculoskeletal Medicine & OMM; ATTEND Neuromusculoskeletal Medicine & OMM
PROC: HZ42ZZZ Group Counseling for Substance Abuse Treatment, Cognitive-Behavioral (ICD-10-PCS; principal; 2019-04-13)
DX: F11.20 Opioid dependence, uncomplicated (principal); F13.20 Sedative, hypnotic or anxiolytic dependence, uncomplicated; F14.20 Cocaine dependence, uncomplicated; F12.20 Cannabis dependence, uncomplicated; F17.210 Nicotine dependence, cigarettes, uncomplicated; L30.9 Dermatitis, unspecified; R35.0 Frequency of micturition; Z91.013 Allergy to seafood
CPT/HCPCS: 36415; 81003; 82962; 87389

== ENCOUNTER 2021-01-20 19:29 | Inpatient (IN) | payer OTHER ==
[2021-01-20 20:51] VITALS: BMI 25.5
[2021-01-20] MEDS ORDERED: ONDANSETRON *ODT* 4 MG TABLET SL PRN (21:01)
[2021-01-20] MEDS ORDERED: MAGNESIUM CITRATE 300 ML BOTTLE PO PRN (21:01)
[2021-01-20] MEDS ORDERED: NICOTINE POLACRILEX 2 MG GUM BUC PRN (21:01)
[2021-01-20] MEDS ORDERED: IBUPROFEN 400 MG TABLET (FP) PO PRN (21:01)
[2021-01-20] MEDS ORDERED: diazePAM 5 MG TABLET PO ONE (21:01)
[2021-01-20] MEDS ORDERED: BISMUTH SUBSALICYLATE 524 MG/30 ML PO PRN (21:01)
[2021-01-20] MEDS ORDERED: MAGNESIUM HYDROX 2400MG/30ML ORAL SUSPENSION 30 ML CUP PO PRN (21:01)
[2021-01-20] MEDS ORDERED: ACETAMINOPHEN 325 MG TABLET (FP) PO PRN ×2 (21:01)
[2021-01-20] MEDS ORDERED: MENTHOL/PHENOL 1 EACH UD MM PRN (21:01)
[2021-01-20] MEDS ORDERED: cloNIDine HCL 0.1 MG TABLET PO PRN (21:06)
[2021-01-20] MEDS ORDERED: MELATONIN 5 MG TABLETS PO SCH (22:00)
[2021-01-20] MEDS ORDERED: ALBUTEROL SO4 2.5/IPRATROPIUM 0.5 INH SOL 3 ML VIAL.NEB. NEB PRN (22:43)
[2021-01-20] MEDS: hydrOXYzine PAMOATE 25 MG CAPSULE (FP) PO SCH (22:53)
[2021-01-20] MEDS: THIAMINE HCL 100 MG TABLET (FP) PO SCH (22:54)
[2021-01-20] MEDS: diazePAM 5 MG TABLET PO SCH ×2 (23:39→23:40)
[2021-01-21] MEDS: hydrOXYzine PAMOATE 25 MG CAPSULE (FP) PO SCH ×5 (05:15→22:12)
[2021-01-21] MEDS: diazePAM 5 MG TABLET PO SCH ×4 (05:15→22:13)
[2021-01-21 10:17] LABS: HEMATOCRIT 35.6 % (35.4-49); HEMOGLOBIN 11.9 GM/dL (11.7-16.9); MCH 30.9 pg (25.7-33.7); MCHC 33.5 g/dl (32.0-35.9); MEAN CELL VOLUME 92.3 fl (80-96); PLATELET COUNT 261 K/MM3 (134-434); RBC 3.86 M/mm3 (4.00-5.60); RDW 13.7 % (11.9-15.9); WHITE BLOOD COUNT 6.2 K/mm3 (4.0-10.0)
[2021-01-21 10:23] LABS: BLOOD UREA NITROGEN 14.3 mg/dL (7-18)
[2021-01-21 10:24] LABS: ALBUMIN 3.2 g/dl (3.4-5.0)
[2021-01-21 10:25] LABS: TOT PROT 5.8 g/dl (6.4-8.2)
[2021-01-21 10:26] LABS: CREATININE 0.9 mg/dL (0.55-1.3)
[2021-01-21] MEDS: PRENATAL VITAMINS W/ FOLIC ACID TABLET (FP) PO SCH (10:26)
[2021-01-21 10:27] LABS: CALCIUM 7.9 mg/dL (8.5-10.1)
[2021-01-21] MEDS: methaDONE HCL 40 MG DISPERSABLE TABLET PO SCH (10:27)
[2021-01-21] MEDS: NICOTINE 14 MG/24 HOURS TOPICAL PATCH TD SCH (10:27)
[2021-01-21 10:32] LABS: BILIRUBIN,TOTAL 0.3 mg/dL (0.2-1)
[2021-01-21] MEDS: MAG HYDROX/AL HYDROX/SIMETH 30 ML UNIT-DOSE CUP PO PRN (11:02)
[2021-01-21] MEDS: diazePAM 5 MG TABLET PO PRN (12:38)
[2021-01-21] MEDS: MELATONIN 5 MG TABLETS PO PRN (22:12)
[2021-01-21] MEDS: THIAMINE HCL 100 MG TABLET (FP) PO SCH (22:12)
[2021-01-22] MEDS: methaDONE HCL 40 MG DISPERSABLE TABLET PO SCH (05:48)
[2021-01-22] MEDS: hydrOXYzine PAMOATE 25 MG CAPSULE (FP) PO SCH ×5 (05:49→22:08)
[2021-01-22] MEDS: diazePAM 5 MG TABLET PO SCH ×3 (05:49→22:09)
[2021-01-22] MEDS: diazePAM 5 MG TABLET PO PRN ×2 (08:29→17:51)
[2021-01-22] MEDS: PRENATAL VITAMINS W/ FOLIC ACID TABLET (FP) PO SCH (10:33)
[2021-01-22] MEDS: METHOCARBAMOL 500 MG TABLET PO PRN (10:35)
[2021-01-22] MEDS: NICOTINE 14 MG/24 HOURS TOPICAL PATCH TD SCH (10:36)
[2021-01-22] MEDS: MAG HYDROX/AL HYDROX/SIMETH 30 ML UNIT-DOSE CUP PO PRN (17:54)
[2021-01-22] MEDS: THIAMINE HCL 100 MG TABLET (FP) PO SCH (22:08)
[2021-01-22] MEDS: MELATONIN 5 MG TABLETS PO PRN (22:10)
[2021-01-23] MEDS: diazePAM 5 MG TABLET PO PRN ×3 (03:18→12:08)
[2021-01-23] MEDS: diazePAM 5 MG TABLET PO SCH ×2 (05:31→18:05)
[2021-01-23] MEDS: methaDONE HCL 40 MG DISPERSABLE TABLET PO SCH (05:31)
[2021-01-23] MEDS: hydrOXYzine PAMOATE 25 MG CAPSULE (FP) PO SCH ×5 (05:32→22:26)
[2021-01-23] MEDS: NICOTINE 14 MG/24 HOURS TOPICAL PATCH TD SCH (10:34)
[2021-01-23] MEDS: METHOCARBAMOL 500 MG TABLET PO PRN (10:34)
[2021-01-23] MEDS: PRENATAL VITAMINS W/ FOLIC ACID TABLET (FP) PO SCH (10:34)
[2021-01-23] MEDS: MELATONIN 5 MG TABLETS PO PRN (22:26)
[2021-01-23] MEDS: THIAMINE HCL 100 MG TABLET (FP) PO SCH (22:26)
[2021-01-24] MEDS: methaDONE HCL 40 MG DISPERSABLE TABLET PO SCH (05:51)
[2021-01-24] MEDS: hydrOXYzine PAMOATE 25 MG CAPSULE (FP) PO SCH (05:52)
[2021-01-24] MEDS ORDERED: diazePAM 5 MG TABLET PO ONE (06:00)
[2021-01-24 09:23] VITALS: BP 105/68; PULSE 64; TEMP 97.7
== END 2021-01-24 08:51 | disposition home or self-care (01) | DRG 773 ==
LOC: YASAS 19:29 → Y6N 21:31
PROVIDERS: ADMIT Allergy & Immunology; ATTEND Allergy & Immunology
PROC: HZ2ZZZZ Detoxification Services for Substance Abuse Treatment (ICD-10-PCS; principal; 2021-01-20)
DX: F10.230 Alcohol dependence with withdrawal, uncomplicated (principal); F11.20 Opioid dependence, uncomplicated; F14.20 Cocaine dependence, uncomplicated; F13.20 Sedative, hypnotic or anxiolytic dependence, uncomplicated; F17.210 Nicotine dependence, cigarettes, uncomplicated; F19.282 Other psychoactive substance dependence with psychoactive substance-induced sleep disorder; F19.20 Other psychoactive substance dependence, uncomplicated; F90.9 Attention-deficit hyperactivity disorder, unspecified type; F41.9 Anxiety disorder, unspecified; F32.9 Major depressive disorder, single episode, unspecified; J45.20 Mild intermittent asthma, uncomplicated; K21.9 Gastro-esophageal reflux disease without esophagitis
CPT/HCPCS: 36415; 80053; 85027; 86780; C9803; J0735; U0003; U0005

== ENCOUNTER 2021-05-07 13:18 | Inpatient (IN) | payer OTHER ==
[2021-05-07 16:06] VITALS: BMI 22.8
[2021-05-07] MEDS ORDERED: MAGNESIUM HYDROX 2400MG/30ML ORAL SUSPENSION 30 ML CUP PO PRN (16:35)
[2021-05-07] MEDS ORDERED: BISMUTH SUBSALICYLATE 524 MG/30 ML PO PRN (16:35)
[2021-05-07] MEDS ORDERED: hydrOXYzine PAMOATE 25 MG CAPSULE (FP) PO PRN (16:35)
[2021-05-07] MEDS ORDERED: MAG HYDROX/AL HYDROX/SIMETH 30 ML UNIT-DOSE CUP PO PRN (16:35)
[2021-05-07] MEDS ORDERED: MENTHOL/PHENOL 1 EACH UD MM PRN (16:35)
[2021-05-07] MEDS ORDERED: MAGNESIUM CITRATE 300 ML BOTTLE PO PRN (16:35)
[2021-05-07] MEDS ORDERED: ONDANSETRON *ODT* 4 MG TABLET SL PRN (16:35)
[2021-05-07] MEDS ORDERED: IBUPROFEN 400 MG TABLET (FP) PO PRN (16:35)
[2021-05-07] MEDS ORDERED: ACETAMINOPHEN 325 MG TABLET (FP) PO PRN ×2 (16:35)
[2021-05-07] MEDS ORDERED: NICOTINE POLACRILEX 4 MG GUM BUC PRN (16:35)
[2021-05-07] MEDS ORDERED: MELATONIN 5 MG TABLETS PO SCH (22:00)
[2021-05-07] MEDS: THIAMINE HCL 100 MG TABLET (FP) PO SCH (22:18)
[2021-05-08] MEDS ORDERED: methaDONE HCL 10 MG TABLET PO SCH ×2 (06:00→08:30)
[2021-05-08] MEDS ORDERED: ALBUTEROL SO4 HFA INHALER IH PRN (07:37)
[2021-05-08] MEDS ORDERED: methaDONE HCL 10 MG TABLET ONE (10:02)
[2021-05-08] MEDS ORDERED: methaDONE HCL 40 MG DISPERSABLE TABLET ONE (10:02)
[2021-05-08] MEDS: NICOTINE 14 MG/24 HOURS TOPICAL PATCH TD SCH (10:12)
[2021-05-08] MEDS: PRENATAL VITAMINS W/ FOLIC ACID TABLET (FP) PO SCH (10:12)
[2021-05-08 10:46] LABS: HEMATOCRIT 36.2 % (35.4-49); HEMOGLOBIN 12.2 GM/dL (11.7-16.9); MCH 31.1 pg (25.7-33.7); MCHC 33.7 g/dl (32.0-35.9); MEAN CELL VOLUME 92.3 fl (80-96); MEAN PLT VOLUME 8.2 fl (7.5-11.1); PLATELET COUNT 210 10^3/uL (134-434); RBC 3.92 M/mm3 (4.00-5.60); RDW 13.7 % (11.9-15.9); WHITE BLOOD COUNT 4.6 K/mm3 (4.0-10.0)
[2021-05-08 10:57] LABS: ALBUMIN 3.6 g/dl (3.4-5.0); CALCIUM 8.5 mg/dL (8.5-10.1)
[2021-05-08 10:58] LABS: BLOOD UREA NITROGEN 10.1 mg/dL (7-18)
[2021-05-08] MEDS: diazePAM 5 MG TABLET PO SCH ×3 (11:00→22:19)
[2021-05-08 11:02] LABS: BILIRUBIN,TOTAL 1.1 mg/dL (0.2-1); TOT PROT 6.6 g/dl (6.4-8.2)
[2021-05-08] MEDS: diazePAM 5 MG TABLET PO PRN (14:10)
[2021-05-08] MEDS: THIAMINE HCL 100 MG TABLET (FP) PO SCH (22:20)
[2021-05-08] MEDS: SUVOREXANT 10 MG TABLET PO PRN (22:23)
[2021-05-09] MEDS ORDERED: methaDONE HCL 10 MG TABLET ONE (04:40)
[2021-05-09] MEDS ORDERED: methaDONE HCL 40 MG DISPERSABLE TABLET ONE (04:41)
[2021-05-09] MEDS: diazePAM 5 MG TABLET PO SCH ×4 (05:59→22:20)
[2021-05-09] MEDS: NICOTINE 14 MG/24 HOURS TOPICAL PATCH TD SCH (10:42)
[2021-05-09] MEDS: PRENATAL VITAMINS W/ FOLIC ACID TABLET (FP) PO SCH (10:43)
[2021-05-09] MEDS: BACITRACIN 0.9 GM PACKET TP SCH ×2 (12:13→23:22)
[2021-05-09] MEDS: diazePAM 5 MG TABLET PO PRN (14:16)
[2021-05-09] MEDS: THIAMINE HCL 100 MG TABLET (FP) PO SCH (22:20)
[2021-05-09] MEDS: METHOCARBAMOL 500 MG TABLET PO PRN (22:20)
[2021-05-09] MEDS: NICOTINE 10 MG CARTRIDGE (INHALER) IH PRN (22:20)
[2021-05-09] MEDS: SUVOREXANT 10 MG TABLET PO PRN (22:20)
[2021-05-10] MEDS ORDERED: methaDONE HCL 40 MG DISPERSABLE TABLET ONE (04:30)
[2021-05-10] MEDS ORDERED: methaDONE HCL 10 MG TABLET ONE (04:30)
[2021-05-10] MEDS: diazePAM 5 MG TABLET PO SCH ×3 (05:38→22:16)
[2021-05-10] MEDS: diazePAM 5 MG TABLET PO PRN ×2 (10:16→17:20)
[2021-05-10] MEDS: NICOTINE 10 MG CARTRIDGE (INHALER) IH PRN ×3 (10:16→22:18)
[2021-05-10] MEDS: NICOTINE 14 MG/24 HOURS TOPICAL PATCH TD SCH (10:17)
[2021-05-10] MEDS: PRENATAL VITAMINS W/ FOLIC ACID TABLET (FP) PO SCH (10:17)
[2021-05-10] MEDS: BACITRACIN 0.9 GM PACKET TP SCH ×2 (10:17→22:16)
[2021-05-10] MEDS: THIAMINE HCL 100 MG TABLET (FP) PO SCH (22:16)
[2021-05-11] MEDS: diazePAM 5 MG TABLET PO PRN ×2 (02:17→09:10)
[2021-05-11] MEDS ORDERED: methaDONE HCL 40 MG DISPERSABLE TABLET ONE (04:34)
[2021-05-11] MEDS ORDERED: methaDONE HCL 10 MG TABLET ONE (04:34)
[2021-05-11] MEDS: diazePAM 5 MG TABLET PO SCH ×2 (06:15→17:40)
[2021-05-11] MEDS: NICOTINE 10 MG CARTRIDGE (INHALER) IH PRN ×4 (06:38→22:36)
[2021-05-11] MEDS: BACITRACIN 0.9 GM PACKET TP SCH ×2 (09:10→22:13)
[2021-05-11] MEDS: METHOCARBAMOL 500 MG TABLET PO PRN (09:11)
[2021-05-11] MEDS: PRENATAL VITAMINS W/ FOLIC ACID TABLET (FP) PO SCH (09:11)
[2021-05-11] MEDS: NICOTINE 14 MG/24 HOURS TOPICAL PATCH TD SCH (10:58)
[2021-05-11 21:51] VITALS: TEMP 96.3
[2021-05-11] MEDS: SUVOREXANT 10 MG TABLET PO PRN (22:12)
[2021-05-11] MEDS: THIAMINE HCL 100 MG TABLET (FP) PO SCH (22:13)
[2021-05-12] MEDS ORDERED: methaDONE HCL 10 MG TABLET ONE (04:52)
[2021-05-12] MEDS ORDERED: methaDONE HCL 40 MG DISPERSABLE TABLET ONE (04:52)
[2021-05-12] MEDS ORDERED: diazePAM 5 MG TABLET PO ONE (06:00)
[2021-05-12 06:45] VITALS: BP 110/59; PULSE 60
[2021-05-12] MEDS: BACITRACIN 0.9 GM PACKET TP SCH (09:56)
[2021-05-12] MEDS: METHOCARBAMOL 500 MG TABLET PO PRN (09:56)
[2021-05-12] MEDS: NICOTINE 14 MG/24 HOURS TOPICAL PATCH TD SCH (09:57)
[2021-05-12] MEDS: PRENATAL VITAMINS W/ FOLIC ACID TABLET (FP) PO SCH (09:57)
== END 2021-05-12 10:00 | disposition other institution (70) | DRG 773 ==
LOC: YASAS 13:18 → Y3N 16:23 → UNDOADMIN 16:23 → Y3N 17:11
PROVIDERS: ADMIT Allergy & Immunology; ATTEND Allergy & Immunology
PROC: HZ2ZZZZ Detoxification Services for Substance Abuse Treatment (ICD-10-PCS; principal; 2021-05-07)
DX: F11.23 Opioid dependence with withdrawal (principal); F10.230 Alcohol dependence with withdrawal, uncomplicated; F13.20 Sedative, hypnotic or anxiolytic dependence, uncomplicated; F14.20 Cocaine dependence, uncomplicated; F12.10 Cannabis abuse, uncomplicated; F17.210 Nicotine dependence, cigarettes, uncomplicated; F19.24 Other psychoactive substance dependence with psychoactive substance-induced mood disorder; F90.9 Attention-deficit hyperactivity disorder, unspecified type; J45.909 Unspecified asthma, uncomplicated; K21.9 Gastro-esophageal reflux disease without esophagitis; Z86.59 Personal history of other mental and behavioral disorders
CPT/HCPCS: 36415; 80053; 85027; 86780; C9803; U0003; U0005